=== PATIENT | male | born 1995 | race Caucasian/White ===

== ENCOUNTER → 2019-09-05 10:15 | Outpatient (CLI) | payer OTHER, SELFPAY ==
[2019-09-05 10:56] LABS: Influenza A and B by PCR Rapid Negative (Negative)
== END ==
PROVIDERS: Visit Provider Physician Assistant
DX: R68.89 Other general symptoms and signs (principal)
CPT/HCPCS: 87502

== ENCOUNTER 2020-08-21 08:01 | Emergency (ER) | payer OTHER, SELFPAY ==
--- NOTE | 2020-08-21 08:06 | ED.ABDPAIN ---
HPI - Abdominal Pain General Chief Complaint: Urogenital-Male Stated Complaint: STOMACH PAIN Time Seen by Provider: 08/21/20 08:06 Source: patient and old records reviewed Mode of arrival: Ambulatory Limitations: no limitations History of Present Illness HPI narrative: This is a 24-year-old male who comes to the emergency department with complaint of right-sided abdominal pain that started about 7:00 a.m. this morning about an hour prior to arrival. Patient states it started gradually and increasing intensity to a level of 10/10. Patient states he has had kidney stones in the past it feels somewhat similar character and location although more intense. He describes it more in the front and not in the back or flank region and mid abdomen. It does not radiate to the testicles he denies any testicular pain. He states it is atypical that he is having vomiting any had diarrhea this morning as well that started at about the same time. He states that his emesis has been yellow issue in color with liquid and some food. He denies any rectal bleeding. He denies any fevers or chills. He states it is quite difficult to find a position of comfort. Denies any other symptoms. Patient states he has never had any intervention for kidney stones. He has not had any prior surgeries, he denies any medical issues otherwise. His allergies to dogs and cats but no medication allergies. Occasional tobacco, occasional alcohol occasional THC use denies other illicit. Related Data Previous Rx's Medication Instructions Recorded ibuprofen 600 mg PO Q6HP PRN #30 tab 12/21/16 amoxicillin 875 mg-potassium 1 tab PO BID #20 tab 09/05/19 clavulanate 125 mg tablet hydrocodone-acetaminophen [[place]] 1 tab PO Q6H PRN #10 tab 08/21/20 tamsulosin [Flomax] 0.4 mg PO DAILY #7 cap 08/21/20 Allergies Allergy/AdvReac Type Severity Reaction Status Date / Time No Known Drug Allergies Allergy Verified 08/21/20 08:08 Review of Systems Review of Systems ROS Unobtainable: All systems reviewed & are unremarkable except as noted in HPI and below Constitutional Constitutional: Denies body ache(s), Denies chills, Denies fever(s), Denies malaise and Denies weakness Cardiovascular Cardiovascular: Denies chest pain and Denies dyspnea Respiratory Respiratory: Denies chest congestion, Denies cough and Denies dyspnea Gastrointestinal Gastrointestinal: Reports abdominal pain, Denies hematochezia, Denies constipation, Reports diarrhea, Reports nausea, Reports vomiting and Denies hematemesis Genitourinary Genitourinary: Denies hematospermia, Reports hematuria (states looks a little brown but mostly yellow), Denies oliguria, Denies difficulty urinating, Reports dysuria, Denies genital pain, Denies scrotal swelling, Denies testicular pain, Denies urinary frequency, Denies urinary incontinence, Denies urinary urgency and Denies other (flank pain) Genitourinary: Reports hematuria (states looks a little brown but mostly yellow), Denies urinary frequency, Reports dysuria, Denies urinary incontinence and Denies urinary urgency Musculoskeletal Musculoskeletal: Denies back pain Integumentary/Breasts Skin/Breast: Denies rash Neurologic Neurologic: Denies weakness Patient History Social History (Updated 08/21/20 @ 08:15 by Sarai Hernandez DO) Smoking Status: Current some day smoker (2-3 days PW and 4-5 cigs) alcohol intake: current substance use type: marijuana Smoking Status: Current some day smoker (2-3 days PW and 4-5 cigs) Exam Initial Vital Signs Initial Vital Signs: Vital Signs Temperature 98.3 F 08/21/20 08:08 Pulse Rate 89 08/21/20 08:08 Respiratory Rate 20 08/21/20 08:08 Blood Pressure 157/77 H 08/21/20 08:08 Pulse Oximetry 98 08/21/20 08:08 GENERAL: Alert and oriented x three, well-nourished male in moderate distress, patient was actively vomiting yellow clear fluid when I came into the room HEENT: Head normocephalic, atraumatic, EOMI, pupils reactive, face symmetric, moist mucous membranes NECK: Supple, full range of motion CARDIOVASCULAR: Regular rate and rhythm without murmurs, rubs or gallops. RESPIRATORY: Breath sounds equal bilaterally, no wheezes rales or rhonchi. ABDOMEN: Soft, positive for generalized tenderness greatest on the left. Normoactive bowel sounds all 4 quadrants. No guarding or rebound, rigidity, no mass : No CVA tenderness EXTREMITIES: Normal range of motion, no clubbing or edema. Neurovascularly intact NEUROLOGICAL: Cranial nerves II through XII grossly intact. Moving all extremities, patient able to ambulate to bathroom but appears quite uncomfortable. SKIN: Warm, dry, no petechiae, no rashes or lesions. Course Orders Ordered: ED Orders 08/21/20 08:07 Complete Blood Count AUTO DIFF Stat Comprehensive Metabolic Panel Stat Lipase Stat Urine Microscopic Stat 08/21/20 08:21 CT abdomen pelvis w con Stat Sodium Chloride (Normal Saline 0.9%) 1,000 mls @ 1,000 mls/hr IV BOLUS ONE Stop: 08/21/20 09:12 Last Admin: 08/21/20 08:21 Dose: 1,000 mls/hr Documented by: TONY Discontinued Medications Ketorolac Tromethamine (Toradol) 15 mg IV NOW ONE Stop: 08/21/20 08:14 Last Admin: 08/21/20 08:18 Dose: 15 mg Documented by: TONY Ondansetron HCl (Zofran) 4 mg IV NOW ONE Stop: 08/21/20 08:08 Last Admin: 08/21/20 08:14 Dose: 4 mg Documented by: TONY Reevaluation(s) Reevaluation #1: Recheck after zofran and Toradol. Patient is feeling significantly improved after medications. We reviewed his labs. Time: 08:46 Reevaluation #2: Patient continues to feel much better. Reviewed CT findings that are consistent with kidney stone. Time: 09:04 Vital Signs Vital signs: Vital Signs - 8 hr 08/21/20 08:08 Temperature 98.3 F Pulse Rate 89 Respiratory Rate 20 Blood Pressure 157/77 H Pulse Oximetry 98 MDM - Abdominal Pain Lab Data Attestation: I reviewed the patient's lab results. Lab results narrative: Labs and urine show no major abnormalities and are consistent with renal stone. Result diagrams: 08/21/20 08:07 08/21/20 08:07 Labs: Lab Results 08/21/20 08/21/20 08/21/20 Range/Units 08:07 08:07 08:07 WBC 6.9 (4.5-11.0) X10^3/uL RBC 5.26 (4.5-5.9) X10^6/uL Hgb 15.3 (13.5-17.5) g/dL Hct 44.1 (41-53) % MCV 83.8 (80-100) fL MCH 29.1 (26-34) PG MCHC 34.7 (30-36) % RDW 12.6 (11.6-14.8) % Plt Count 311 (150-400) X10^3/uL Neut % (Auto) 40.8 L (50-75) % Lymph % (Auto) 49.3 H (25-40) % [place] % (Auto) 8.9 (3-14) % Eos % (Auto) 0.8 L (2-4) % Baso % (Auto) 0.2 (0-2) % Neut # (Auto) 2800 (9022-0366) /uL Lymph # (Auto) 3400 (7899-2760) /uL [place] # (Auto) 600 (0-900) /uL Eos # (Auto) 100 (0-450) /uL Baso # (Auto) 0 (0-100) /uL Sodium 139 (137-145) mmol/L Potassium 4.1 (3.4-5.1) mmol/L Chloride 104 (98-107) mmol/L Carbon Dioxide 25 (22-32) mmol/L BUN 17 (9-20) mg/dL Creatinine 0.85 (0.66-1.25) mg/dL Estimated GFR > 60.0 (>60) mL/min BUN/Creatinine Ratio 20.0 (6-22) Glucose 107 H (70-100) mg/dL Calcium 9.6 (8.4-10.2) mg/dL Total Bilirubin 0.9 (0.2-1.3) mg/dL AST 34 (17-59) IU/L ALT 23 (<50) IU/L Alkaline Phosphatase 63 (38-126) U/L Total Protein 8.8 H (6.3-8.2) g/dL Albumin 5.1 H (3.5-5.0) g/dL Globulin 3.7 (1.7-4.1) g/dL Albumin/Globulin Ratio 1.4 (1.0-2.8) Lipase 101 (23-300) U/L Urine RBC >100/hpf H (0-5/HPF) Urine WBC 0-1/hpf (0-5/HPF) Urine Bacteria None seen (None) Ur Culture Indicated? Cult not indicated Point of care testing: Urine Dip Bedside Urine Glucose Negative Bedside Urine Bilirubin - Negative Bedside Urine Ketone - Negative Urine Specific [place] 1.020 Bedside Urine Occult Blood +++ Bedside Urine pH 6 Bedside Urine Protein +/- 15 Bedside Urine Urobilinogen +/- 1mg Bedside Urine Nitrite - Negative Bedside Urine Leukocytes - Negative Esterase Imaging Data CT scan - abdomen/pelvis: Radiologist's Impression: [address] [address] [address] Scan Report Signed Patient: Clara Garcia [facility]#: [id number] : 1995Acct:[id number] Age/Sex: 24 / MDate of Service: 08/21/20 Loc: ED Accession Number: [id number] Procedure: CT abdomen pelvis w con Ordering Provider: Sarai Hernandez D.O. PROCEDURE: CT ABDOMEN PELVIS W CON INDICATIONS: c/o right abd pain, hx kidney stones, tender left, + v/d TECHNIQUE: After the administration of intravenous contrast, 5 mm thick sections acquired from the diaphragm to the symphysis. 5 mm coronal and sagittal reformats were acquired. For radiation dose reduction, the following was used: automated exposure control, adjustment of mA and/or kV according to patient size. COMPARISON: None. FINDINGS: Image quality: Excellent. ABDOMEN: Lung bases: Lung bases are clear. Heart size is normal. Solid organs: Liver is normal in size and enhancement. Gallbladder is normal . Biliary system is non dilated. Pancreas enhances normally. Spleen is normal in size and enhancement. No adrenal nodules. There is a 3.3 millimeter stone in the left UVJ causing moderate right hydronephrosis. Peritoneum and bowel: Bowel loops demonstrate normal wall thickness and caliber. No free fluid or air. The appendix is normal Nodes and vessels: No retroperitoneal or mesenteric adenopathy by size criteria. Aorta and inferior vena cava are normal in size. Miscellaneous: No ventral hernias. PELVIS: Genitourinary: Bladder wall thickness is normal. Miscellaneous: No inguinal hernias or adenopathy. Bones: No suspicious bony lesions. No vertebral body compression fractures. IMPRESSION: 3.3 millimeter calculus in the right UVJ causing moderate right hydronephrosis. Dictated by: Rhys Be M.D. on 08/21/2020 at 8:43 Approved by: Rhys Be M.D. on 08/21/2020 at 8:51 [facility] Narrative Medical decision making narrative: Patient labs do not show any major abnormalities in his creatinine is in a normal range. He does have blood consistent with kidney stone and his CT shows a 3.3 mm stone in the right UVJ. Patient is significantly improved after Toradol and Zofran. Plan for pain control, Flomax and follow-up with urology as needed. Patient was given a referral. Discharge Plan Departure Patient Disposition: Home Clinical Impression: Kidney stone on right side Instructions: DI for Kidney Stones Activity Restrictions/Additional Instructions: Follow-up with primary care or Urology if your symptoms are not resolving over the next several days. Your imaging does show a kidney stone on the right side. You may continue with ibuprofen up to 800 mg every 8 hours as needed for pain, you may also take Tylenol up to a 1000 mg every 8 hours as needed for pain in combination. If this is inadequate for pain control you may take narcotic pain medication 1-2 tablets every 6 hours as needed. This medication has Tylenol so do not take it with Tylenol as you can cause injury to her liver. Maximum acetaminophen or Tylenol in 24 hours is 3000 mg. Take flomax once daily. Return to the ER for fevers greater than 100.4 F, rapidly worsening or uncontrollable pain, persistent vomiting, inability urinate, black or bloody stools or other new or concerning symptoms. Prescriptions: New hydrocodone-acetaminophen [[place]] 5-325 mg tablet 1 tab PO Q6H PRN (Reason: pain) Qty: 10 RF: 0 tamsulosin [Flomax] 0.4 mg capsule 0.4 mg PO DAILY Qty: 7 RF: 0 No Action amoxicillin-pot clavulanate [Augmentin] 875-125 mg tablet 1 tab PO BID Qty: 20 RF: 0 ibuprofen 600 MG tablet 600 mg PO Q6HP PRNQty: 30 RF: 0 Referrals: Brenton Mcgee MD [Physician] -
[2020-08-21 08:08] VITALS: BP 157/77; PULSE 89; RESP 20; TEMP 36.8; O2SAT 98; BMI 25.0
[2020-08-21] MEDS: ONDANSETRON 4 MG/2 ML INJ IV (08:14)
[2020-08-21] MEDS: KETOROLAC 60 MG/2 ML VIAL 15 MG IV (08:18)
[2020-08-21] MEDS: SODIUM CHLORIDE 0.9% 1,000 ML 1000 ML IV (08:21)
--- NOTE | 2020-08-21 08:21 | DI.CT.S_ITS ---
PROCEDURE: CT ABDOMEN PELVIS W CON INDICATIONS: c/o right abd pain, hx kidney stones, tender left, + v/d TECHNIQUE: After the administration of intravenous contrast, 5 mm thick sections acquired from the diaphragm to the symphysis. 5 mm coronal and sagittal reformats were acquired. For radiation dose reduction, the following was used: automated exposure control, adjustment of mA and/or kV according to patient size. COMPARISON: None. FINDINGS: Image quality: Excellent. ABDOMEN: Lung bases: Lung bases are clear. Heart size is normal. Solid organs: Liver is normal in size and enhancement. Gallbladder is normal . Biliary system is non dilated. Pancreas enhances normally. Spleen is normal in size and enhancement. No adrenal nodules. There is a 3.3 millimeter stone in the left UVJ causing moderate right hydronephrosis. Peritoneum and bowel: Bowel loops demonstrate normal wall thickness and caliber. No free fluid or air. The appendix is normal Nodes and vessels: No retroperitoneal or mesenteric adenopathy by size criteria. Aorta and inferior vena cava are normal in size. Miscellaneous: No ventral hernias. PELVIS: Genitourinary: Bladder wall thickness is normal. Miscellaneous: No inguinal hernias or adenopathy. Bones: No suspicious bony lesions. No vertebral body compression fractures. IMPRESSION: 3.3 millimeter calculus in the right UVJ causing moderate right hydronephrosis. Dictated by: Rhys Be M.D. on 08/21/2020 at 8:43 Approved by: Rhys Be M.D. on 08/21/2020 at 8:51
[2020-08-21 08:23] LABS: Bacteria Urine None Seen
[2020-08-21 08:27] LABS: Add Manual Diff / Slide Review NO; Basophils Absolute Auto 0 /uL (0-100); Basophils Percent Auto 0.2 % (0-2); Eosinophils Absolute Auto 100 /uL (0-450); Eosinophils Percent Auto 0.8 % (2-4); Hematocrit 44.1 % (41-53); Hemoglobin 15.3 g/dL (13.5-17.5); Lymphocytes Absolute Auto 3400 /uL (1100-4500); Lymphocytes Percent Auto 49.3 % (25-40); Mean Corpuscular HGB Conc 34.7 % (30-36); Mean Corpuscular Hemoglobin 29.1 PG (26-34); Mean Corpuscular Volume 83.8 fL (80-100); Monocytes Absolute Auto 600 /uL (0-900); Monocytes Percent Auto 8.9 % (3-14); Neutrophils Absolute Auto 2800 /uL (1500-7000); Neutrophils Percent Auto 40.8 % (50-75); Platelet Count 311 X10^3/uL (150-400); Red Blood Cell Count 5.26 X10^6/uL (4.5-5.9); Red Cell Distribution Width 12.6 % (11.6-14.8); White Blood Cell Count 6.9 X10^3/uL (4.5-11.0)
[2020-08-21 08:34] LABS: Culture Indicated Urine Cult Not Indicated; RBC Urine >100/HPF (0-5/HPF); WBC Urine 0-1/HPF (0-5/HPF)
[2020-08-21 08:36] LABS: Alanine Aminotransferase 23 IU/L (<50); Albumin 5.1 g/dL (3.5-5.0); Albumin Globulin Ratio 1.4 (1.0-2.8); Alkaline Phosphatase 63 U/L (38-126); Aspartate Aminotransferase 34 IU/L (17-59); Bilirubin Total 0.9 mg/dL (0.2-1.3); Blood Urea Nitrogen 17 mg/dL (9-20); Calcium 9.6 mg/dL (8.4-10.2); Carbon Dioxide 25 mmol/L (22-32); Chloride 104 mmol/L (98-107); Estimated Glomerular Filt Rate > 60.0 mL/min (>60); Globulin 3.7 g/dL (1.7-4.1); Glucose 107 mg/dL (70-100); HEMOLYSIS < 15 (0-50); Lipase 101 U/L (23-300); Potassium 4.1 mmol/L (3.4-5.1); Sodium 139 mmol/L (137-145); Total Protein 8.8 g/dL (6.3-8.2)
[2020-08-21 08:39] VITALS: PULSE 74; O2SAT 100
[2020-08-21 09:00] VITALS: BP 111/67; PULSE 66; RESP 16; O2SAT 99
--- NOTE | 2020-09-27 07:05 | PC.NURSE ---
stop time for IV bolus of NS 1000ml was [id number]
== END 2020-08-21 09:19 | disposition home or self-care (01) ==
PROVIDERS: Emergency Provider Emergency Medicine
DX: N20.0 Calculus of kidney (principal); Z87.442 Personal history of urinary calculi; R31.9 Hematuria, unspecified; R11.2 Nausea with vomiting, unspecified
CPT/HCPCS: 36415; 74177; 80053; 81003; 81015; 83690; 85025; 96361; 96374; 96375; 99284; J1885; J2405; Q9967

== ENCOUNTER → 2021-05-06 15:37 | Outpatient (CLI) | payer OTHER, SELFPAY ==
[2021-05-06 17:14] LABS: Urine N gonorrhoeae NOT DETECTED
[2021-05-06 17:44] LABS: Urine Chlamydia NOT DETECTED
== END ==
PROVIDERS: Visit Provider Physician Assistant
DX: R30.0 Dysuria (principal)
CPT/HCPCS: 87491; 87591

== ENCOUNTER → 2021-05-06 16:24 | Outpatient (CLI) | payer OTHER, SELFPAY ==
[2021-05-07 07:46] LABS: RPR Screen Non Reactive (Non Reactive)
[2021-05-07 16:55] LABS: Hepatitis B Surface Antigen NEGATIVE s/c (NEGATIVE)
[2021-05-07 17:16] LABS: HIV 1 & 2 Ab/Ag 4th Gen Combo NEGATIVE (NEGATIVE); Hep C Virus Ab w/Reflex Quant NEGATIVE s/c (NEGATIVE)
== END ==
PROVIDERS: PCP Student in an Organized Health Care Education/Training Program; Referring Provider Physician Assistant; Visit Provider Physician Assistant
DX: N34.2 Other urethritis (principal); R30.0 Dysuria
CPT/HCPCS: 36415; 86592; 86803; 87340; 87389; 87491; 87591

== ENCOUNTER → 2024-08-02 08:38 | Outpatient (CLI) | payer SELFPAY | PROVIDERS: PCP Student in an Organized Health Care Education/Training Program; Referring Provider Nurse Practitioner Family; Visit Provider Nurse Practitioner Family | DX: J02.9 Acute pharyngitis, unspecified (principal) | CPT/HCPCS: 87070 ==